=== PATIENT | male | born 1935 | race Caucasian/White ===

== ENCOUNTER 2017-03-21 10:39 | Inpatient (IN) | payer MEDICARE, OTHER, MEDICAID ==
[2017-03-21] MEDS: Sodium Chloride 0.9% 1,000 ML IV ONE ×2 (11:00→13:29)
[2017-03-21] MEDS ORDERED: Sodium Chloride 0.9% 1,000 ML IV ONE (11:00)
[2017-03-21 12:04] LABS: CHLORIDE,CL 105 mmol/L (101-111); SODIUM,NA 138 mmol/L (135-145)
--- NOTE | 2017-03-21 12:17 | EDM.PDOC ---
ED HPI GENERAL MEDICAL PROBLEM - General Chief Complaint: Possible Sepsis Stated Complaint: [facility] PATIENT Time Seen by Provider: 03/21/17 11:05 Source of Information: Reports: Patient History Limitations: Reports: No Limitations - History of Present Illness INITIAL COMMENTS - FREE TEXT/NARRATIVE: This 81 yo male patient reports [facility] due to not answering normally, a fever (yesterday of 101). The patient has a history of a cellulitis in his right leg and has a rash again on his right leg. The patient normally answers in complete sentences, but today only answers in 1-2 word phrases. Onset: Gradual Onset Date: 03/20/17 Duration: Constant, Getting Worse Location: Reports: Generalized Quality: Reports: Dull Severity: Severe Improves with: Reports: None Worsens with: Reports: None Associated Symptoms: Reports: No Other Symptoms - Related Data Allergies Allergy/AdvReac Type Severity Reaction Status Date / Time amoxicillin [Amoxicillin] Allergy Unknown Cannot Verified 11/13/16 16:47 Remember Penicillins Allergy Unknown Cannot Verified 11/13/16 16:47 Remember Home Meds: Home Meds Acetaminophen [Tylenol] 650 mg PO ASDIRECTED PRN 09/23/14 [History] Ascorbic Acid [Vitamin C] 1 tab PO DAILY 09/23/14 [History] Calcium Carbonate [Tums] 1 tab PO ASDIRECTED PRN 09/23/14 [History] Cranberry 800 mg PO BID 09/23/14 [History] Dexamethasone/Tobramycin [Tobradex Ophth Susp] 1 drop EYEBOTH ASDIRECTED [History] Docusate Sodium [Colace] 100 mg PO DAILY PRN 09/23/14 [History] Glycopyrrolate 1 mg PO BID 09/23/14 [History] Hypromellose [Systane Gel] 1 dose EYEBOTH ASDIRECTED 09/23/14 [History] LORazepam 0.5 mg PO TID 09/23/14 [History] Mirtazapine [Remeron] 15 mg PO DAILY 09/23/14 [History] Multivitamin [Multi-Vitamin Daily] 1 tab PO DAILY 09/23/14 [History] Polyethylene Glycol 3350 [MiraLAX] 17 gm PO DAILY 09/23/14 [History] Propranolol [Inderal LA] 40 mg PO TID 09/23/14 [History] Tamsulosin HCl 0.4 mg PO DAILY 09/23/14 [History] Warfarin Sodium [Jantoven] 2.5 mg PO ASDIRECTED 09/23/14 [History] Warfarin [Coumadin] 5 mg PO ASDIRECTED 09/23/14 [History] guaiFENesin [Robitussin] 10 ml PO ASDIRECTED PRN 09/23/14 [History] Acetaminophen [Tylenol] 650 mg PO TID 11/13/16 [History] Lidocaine HCl [Aspercreme] 76.5 gm TP BID 11/13/16 [History] Psyllium Husk [Fiber] 0.52 gm PO BID 11/13/16 [History] Trolamine Salicylate/Aloe Vera [Aspercreme 10%] 1 mg TOP ASDIRECTED 11/13/16 [ History] Vit C/Ascorbate Ca/Ascorb Sod [Vitamin C] 500 mg PO ASDIRECTED 11/13/16 [History ] Past Medical History Cardiovascular History: Reports: Hypertension, Other (See Below) Other Cardiovascular History: dependent edema Gastrointestinal History: Reports: Chronic Constipation, Diverticulosis Genitourinary History: Reports: BPH Musculoskeletal History: Reports: Other (See Below) Other Musculoskeletal History: debility Neurological History: Reports: Other (See Below) Other Neuro History: essential tremor Psychiatric History: Reports: Depression Hematologic History: Reports: Anticoagulation Therapy Social & Family History - Family History Family Medical History: Noncontributory Respiratory: Reports: COPD - Tobacco Use Smoking Status *Q: Never Smoker Second Hand Smoke Exposure: No - Caffeine Use Caffeine Use: Reports: Coffee - Alcohol Use Days Per Week of Alcohol Use: 0 - Recreational Drug Use Recreational Drug Use: No - Living Situation & Occupation Living situation: Reports: Extended Care Facility Occupation: Retired ED ROS GENERAL - Review of Systems Review Of Systems: ROS reveals no pertinent complaints other than HPI. ED EXAM, GENERAL - Physical Exam Exam: See Below Exam Limited By: No Limitations General Appearance: Lethargic, Severe Distress, Thin Eye Exam: Bilateral Eye: EOMI, Normal Inspection, PERRL Ears: Normal External Exam, Normal Canal, Hearing Grossly Normal, Normal TMs Nose: Normal Inspection, Normal Mucosa, No Blood Throat/Mouth: Normal Inspection Head: Atraumatic, Normocephalic Neck: Normal Inspection, Supple, Non-Tender, Full Range of Motion Respiratory/Chest: Decreased Breath Sounds Cardiovascular: Irregularly Irregular GI/Abdominal: Normal Bowel Sounds, Soft, Non-Tender, No Organomegaly, No Distention, No Abnormal Bruit, No Mass (Male) Exam: Deferred Rectal (Males) Exam: Deferred Extremities: Pedal Edema (right leg) Neurological: Alert Psychiatric: Depressed Mood, Flat Affect Skin Exam: Rash (right leg) Lymphatic: No Adenopathy Course - Vital Signs Last Recorded V/S: Last Vital Signs Temp 36.4 C 03/21/17 10:45 Pulse 132 H 03/21/17 10:45 Resp 24 H 03/21/17 10:45 BP 81/60 L 03/21/17 10:45 Pulse Ox 94 L 03/21/17 10:45 - Orders/Labs/Meds Orders: Active Orders 24 hr Category Date Time Status EKG Documentation Completion [RC] URGENT Care 03/21/17 11:10 Active Chest 1V Frontal [CR] Urgent Exams 03/21/17 11:11 Taken Head wo Cont [CT] Urgent Exams 03/21/17 12:38 Ordered CULTURE BLOOD [BC] Stat Lab 03/21/17 11:25 Received CULTURE BLOOD [BC] Stat Lab 03/21/17 11:34 Received Blood Culture x2 Reflex Set [OM.PC] Stat Oth 03/21/17 11:10 Ordered Labs: Laboratory Tests 03/21/17 03/21/17 03/21/17 Range/Units 11:25 11:25 11:25 WBC 15.8 H (5.0-10.0) 10^3/uL RBC 4.90 (4.6-6.2) 10^6/uL Hgb 14.9 (14.0-18.0) g/dL Hct 46.5 (40.0-54.0) % MCV 94.9 (80-100) fL MCH 30.4 (27.0-34.0) pg MCHC 32.0 L (33.0-35.0) g/dL Plt Count 154 (150-450) 10^3/uL Neut % (Auto) 86.5 H (42.2-75.2) % Lymph % (Auto) 7.0 L (20.5-50.1) % Hale % (Auto) 6.3 (2-8) % Eos % (Auto) 0.1 L (1.0-3.0) % Baso % (Auto) 0.1 (0.0-1.0) % Add Manual Diff Yes Neutrophils % (Manual) 80 % Band Neutrophils % 4 % Lymphocytes % (Manual) 10 % Monocytes % (Manual) 6 % PT (9.0-12.0) SEC INR (0.9-1.2) Sodium 138 (135-145) mmol/L Potassium 4.0 (3.6-5.0) mmol/L Chloride 105 (101-111) mmol/L Carbon Dioxide 26.0 (21.0-31.0) mmol/L Anion Gap 11.0 BUN 24 H (7-18) mg/dL Creatinine 1.0 (0.6-1.3) mg/dL Est Cr Clr Drug Dosing 74.81 mL/min Estimated GFR (MDRD) > 60 BUN/Creatinine Ratio 24.00 Glucose 115 H (74-105) mg/dL Lactic Acid 1.5 (0.5-2.2) mmol/L Calcium 8.6 (8.4-10.2) mg/dl Total Bilirubin 1.2 H (0.2-1.0) mg/dL AST 27 (10-42) IU/L ALT 15 (10-60) IU/L Alkaline Phosphatase 59 (42-121) IU/L Troponin I 0.03 H* (0.00-0.02) ng/ml C-Reactive Protein (0.0-1.3) mg/dL Total Protein 6.1 L (6.7-8.2) g/dl Albumin 2.8 L (3.2-5.5) g/dl Globulin 3.3 Albumin/Globulin Ratio 0.85 Urine Color (YELLOW) Urine Appearance (CLEAR) Urine pH (5.0-9.0) Ur Specific Aneta (1.005-1.030) Urine Protein (NEGATIVE) Urine Glucose (UA) (NEGATIVE) Urine Ketones (NEGATIVE) Urine Occult Blood (NEGATIVE) Urine Nitrite (NEGATIVE) Urine Bilirubin (NEGATIVE) Urine Urobilinogen (0.2-1.0) mg/dL Ur Leukocyte Esterase (NEGATIVE) Urine RBC /HPF Urine WBC (0-5/HPF) /HPF Ur Epithelial Cells /HPF Urine Bacteria (0-FEW/HPF) /HPF 03/21/17 03/21/17 03/21/17 Range/Units 11:25 11:25 12:00 WBC (5.0-10.0) 10^3/uL RBC (4.6-6.2) 10^6/uL Hgb (14.0-18.0) g/dL Hct (40.0-54.0) % MCV (80-100) fL MCH (27.0-34.0) pg MCHC (33.0-35.0) g/dL Plt Count (150-450) 10^3/uL Neut % (Auto) (42.2-75.2) % Lymph % (Auto) (20.5-50.1) % Hale % (Auto) (2-8) % Eos % (Auto) (1.0-3.0) % Baso % (Auto) (0.0-1.0) % Add Manual Diff Neutrophils % (Manual) % Band Neutrophils % % Lymphocytes % (Manual) % Monocytes % (Manual) % PT 19.2 H (9.0-12.0) SEC INR 1.9 H (0.9-1.2) Sodium (135-145) mmol/L Potassium (3.6-5.0) mmol/L Chloride (101-111) mmol/L Carbon Dioxide (21.0-31.0) mmol/L Anion Gap BUN (7-18) mg/dL Creatinine (0.6-1.3) mg/dL Est Cr Clr Drug Dosing mL/min Estimated GFR (MDRD) BUN/Creatinine Ratio Glucose (74-105) mg/dL Lactic Acid (0.5-2.2) mmol/L Calcium (8.4-10.2) mg/dl Total Bilirubin (0.2-1.0) mg/dL AST (10-42) IU/L ALT (10-60) IU/L Alkaline Phosphatase (42-121) IU/L Troponin I (0.00-0.02) ng/ml C-Reactive Protein > 20.0 H (0.0-1.3) mg/dL Total Protein (6.7-8.2) g/dl Albumin (3.2-5.5) g/dl Globulin Albumin/Globulin Ratio Urine Color Yellow (YELLOW) Urine Appearance Turbid (CLEAR) Urine pH 5.5 (5.0-9.0) Ur Specific Aneta 1.015 (1.005-1.030) Urine Protein 30 H (NEGATIVE) Urine Glucose (UA) Negative (NEGATIVE) Urine Ketones Trace H (NEGATIVE) Urine Occult Blood Moderate H (NEGATIVE) Urine Nitrite Negative (NEGATIVE) Urine Bilirubin Negative (NEGATIVE) Urine Urobilinogen 0.2 (0.2-1.0) mg/dL Ur Leukocyte Esterase Small H (NEGATIVE) Urine RBC 10-20 H /HPF Urine WBC 50-75 H (0-5/HPF) /HPF Ur Epithelial Cells Rare /HPF Urine Bacteria Many H (0-FEW/HPF) /HPF Departure - Departure Time of Disposition: 12:40 Disposition: Admitted As Inpatient 66 Condition: poor Clinical Impression: Cellulitis of right leg Sepsis Qualifiers: Sepsis type: sepsis due to unspecified organism Qualified Code(s): A41.9 - Sepsis, unspecified organism - Discharge Information Forms: ED Department Discharge Care Plan Goals: Discussed the patient's history, examination, lab, x-ray and treatments with Dr. Smith. Dr. Smith accepted the patient for continued evaluation and management as an inpatient at [facility]. - My Orders Last 24 Hours: My Active Orders 03/21/17 11:10 EKG Documentation Completion [RC] URGENT Blood Culture x2 Reflex Set [OM.PC] Stat 03/21/17 11:11 Chest 1V Frontal [CR] Urgent 03/21/17 11:25 CULTURE BLOOD [BC] Stat 03/21/17 11:34 CULTURE BLOOD [BC] Stat 03/21/17 12:38 Head wo Cont [CT] Urgent - Assessment/Plan Last 24 Hours: My Active Orders 03/21/17 11:10 EKG Documentation Completion [RC] URGENT Blood Culture x2 Reflex Set [OM.PC] Stat 03/21/17 11:11 Chest 1V Frontal [CR] Urgent 03/21/17 11:25 CULTURE BLOOD [BC] Stat 03/21/17 11:34 CULTURE BLOOD [BC] Stat 03/21/17 12:38 Head wo Cont [CT] Urgent
[2017-03-21] MEDS ORDERED: Acetaminophen 325 MG Tab PO PRN (14:29)
[2017-03-21] MEDS ORDERED: Polyvinyl Alcohol 1.4% Ophth Soln 15 ML Bottle EYEBOTH SCH (14:30)
[2017-03-21] MEDS ORDERED: Clindamycin Phosphate 600 MG in Sodium Chloride 0.9% 100 ML IV SCH ×2 (14:36→22:00)
--- NOTE | 2017-03-21 14:43 | PCM.HP ---
H&P History of Present Illness - General Date of Service: 03/21/17 Admit Problem/Dx: Admission Diagnosis/Problem Admission Diagnosis/Problem Cellulitis Source of Information: Patient (minimally able to communicate), Old Records (ER notes and prior admission notes), Provider (ER provider) History Limitations: Reports: Altered Mental Status - History of Present Illness Initial Comments - Free Text/Narative: The patent is a 81 y/o from prison with PMH h/o severe OA of the neck, essential tremors, chronic constipation, HTN, h/o DVT on coumadin , functional paraplegia with contractures, depression and chronic leg edema. On 20 March the patient was noted to develop lethargy and fever. On 21 March the patient was noted to have right lower extremity redness and was transferred to the emergency room from the prison. She is less responsive than his baseline and not talking much. Limited information is obtainable from the patient no cough, no diarrhea, no new c/o pain - but not himself. The patient was evaluated in the emergency room, noted to have leukocytosis and right lower extremity redness. This right lower extremity redness is similar to admission with similar presentation in October 2016. - Related Data Allergies/Adverse Reactions: Allergies Allergy/AdvReac Type Severity Reaction Status Date / Time amoxicillin [Amoxicillin] Allergy Unknown Cannot Verified 11/13/16 16:47 Remember Penicillins Allergy Unknown Cannot Verified 11/13/16 16:47 Remember Home Medications: Home Meds Acetaminophen [Tylenol] 650 mg PO ASDIRECTED PRN 09/23/14 [History] Ascorbic Acid [Vitamin C] 1 tab PO DAILY 09/23/14 [History] Calcium Carbonate [Tums] 1 tab PO ASDIRECTED PRN 09/23/14 [History] Cranberry 800 mg PO BID 09/23/14 [History] Dexamethasone/Tobramycin [Tobradex Ophth Susp] 1 drop EYEBOTH ASDIRECTED [History] Docusate Sodium [Colace] 100 mg PO DAILY PRN 09/23/14 [History] Glycopyrrolate 1 mg PO BID 09/23/14 [History] Hypromellose [Systane Gel] 1 dose EYEBOTH ASDIRECTED 09/23/14 [History] LORazepam 0.5 mg PO TID 09/23/14 [History] Mirtazapine [Remeron] 15 mg PO DAILY 09/23/14 [History] Multivitamin [Multi-Vitamin Daily] 1 tab PO DAILY 09/23/14 [History] Polyethylene Glycol 3350 [MiraLAX] 17 gm PO DAILY 09/23/14 [History] Propranolol [Inderal LA] 40 mg PO TID 09/23/14 [History] Tamsulosin HCl 0.4 mg PO DAILY 09/23/14 [History] Warfarin Sodium [Jantoven] 2.5 mg PO ASDIRECTED 09/23/14 [History] Warfarin [Coumadin] 5 mg PO ASDIRECTED 09/23/14 [History] guaiFENesin [Robitussin] 10 ml PO ASDIRECTED PRN 09/23/14 [History] Acetaminophen [Tylenol] 650 mg PO TID 11/13/16 [History] Lidocaine HCl [Aspercreme] 76.5 gm TP BID 11/13/16 [History] Psyllium Husk [Fiber] 0.52 gm PO BID 11/13/16 [History] Trolamine Salicylate/Aloe Vera [Aspercreme 10%] 1 mg TOP ASDIRECTED 11/13/16 [ History] Vit C/Ascorbate Ca/Ascorb Sod [Vitamin C] 500 mg PO ASDIRECTED 11/13/16 [History ] Past Medical History HEENT History: Reports: Other (See Below) Other HEENT History: conjunctivitis Cardiovascular History: Reports: Hypertension, Other (See Below) Other Cardiovascular History: dependent edema Gastrointestinal History: Reports: Chronic Constipation, Diverticulosis Genitourinary History: Reports: BPH Musculoskeletal History: Reports: Other (See Below) Other Musculoskeletal History: debility Neurological History: Reports: TIA, Other (See Below) Other Neuro History: essential tremor Psychiatric History: Reports: Depression Hematologic History: Reports: Anticoagulation Therapy Dermatologic History: Reports: Cellulitis Social & Family History - Family History Family Medical History: Noncontributory Respiratory: Reports: COPD - Tobacco Use Smoking Status *Q: Never Smoker Second Hand Smoke Exposure: No - Caffeine Use Caffeine Use: Reports: Coffee - Alcohol Use Days Per Week of Alcohol Use: 1 Number of Drinks Per Day: 1 Total Drinks Per Week: 1 - Recreational Drug Use Recreational Drug Use: No - Living Situation & Occupation Living situation: Reports: Extended Care Facility Occupation: Retired H&P Review of Systems - Review of Systems: Review Of Systems: See Below General: Reports: Fever, Malaise, Weakness Pulmonary: Denies: Shortness of Breath, Wheezing Cardiovascular: Reports: Edema. Denies: Chest Pain Gastrointestinal: Denies: Abdominal Pain, Black Stool, Diarrhea Genitourinary: Denies: Dysuria Psychiatric: Reports: Depression Neurological: Reports: Confusion Exam - Exam Exam: See Below - Vital Signs Vital Signs: Last Vital Signs Temp 36.9 C 03/21/17 14:03 Pulse 58 L 03/21/17 14:03 Resp 18 03/21/17 14:03 BP 83/34 L 03/21/17 14:03 Pulse Ox 98 03/21/17 14:03 Weight: 95.719 kg - Exam General: Lethargic (but arousable briefly) HEENT: No: EOMI Neck: No: Supple (contracture) Lungs: Clear to Auscultation, Normal Respiratory Effort. No: Wheezing Cardiovascular: Regular Rate Abdomen: Normal Bowel Sounds, Soft Extremities: Edema (right lower extremity), Other (bilateral upper extremities contracted) Skin: Warm, Other (right lower extremity diffuse redness from ankle to thigh) Neurological: Other (contracted extremities and neck, mild tremor) Neuro Extensive - Mental Status: No: Oriented x3 - Patient Data Result Diagrams: 03/21/17 11:25 03/21/17 11:25 *Q Meaningful Use (ADM) - VTE *Q VTE Criteria *Q: - Stroke *Q Stroke Criteria *Q: - AMI *Q AMI Criteria *Q: - Problem List (1) Cellulitis of right leg SNOMED Code(s): 510414089 ICD Code: L03.115 - CELLULITIS OF RIGHT LOWER LIMB Status: Acute Current Visit: Yes Problem List Initiated/Reviewed/Updated: Yes Orders Last 24hrs: Active Orders 24 hr Category Date Time Status Antiembolic Devices [RC] PER UNIT ROUTINE Care 03/21/17 14:36 Ordered Oxygen Therapy [RC] PRN Care 03/21/17 14:29 Ordered Peripheral IV Care [RC] . DIRECTED Care 03/21/17 14:36 Ordered Up With Assistance [RC] ASDIRECTED Care 03/21/17 14:29 Ordered VTE/DVT Education [RC] PER UNIT ROUTINE Care 03/21/17 14:29 Ordered Vital Signs [RC] Q4H Care 03/21/17 14:29 Ordered OT Evaluation and Treatment [CONS] Routine Cons 03/21/17 14:29 Ordered PT Evaluation and Treatment [CONS] Routine Cons 03/21/17 14:29 Ordered Regular Diet [DIET] Diet 03/21/17 Dinner Ordered BASIC METABOLIC PANEL,BMP [CHEM] AM Lab 03/22/17 05:15 Ordered CBC WITH AUTO DIFF [HEME] AM Lab 03/22/17 05:15 Ordered CULTURE URINE [RM] Routine Lab 03/21/17 14:17 Uncollected INR,PT,PROTHROMBIN TIME [COAG] AM Lab 03/23/17 05:11 Ordered INR,PT,PROTHROMBIN TIME [COAG] AM Lab 03/24/17 05:11 Ordered INR,PT,PROTHROMBIN TIME [COAG] AM Lab 03/25/17 05:11 Ordered INR,PT,PROTHROMBIN TIME [COAG] AM Lab 03/26/17 05:11 Ordered INR,PT,PROTHROMBIN TIME [COAG] AM Lab 03/27/17 05:11 Ordered INR,PT,PROTHROMBIN TIME [COAG] AM Lab 03/28/17 05:11 Ordered Acetaminophen [Tylenol] Med 03/21/17 14:29 Ordered 650 mg PO Q4H PRN Acetaminophen [Tylenol] Med 03/21/17 21:00 Ordered 650 mg PO TID Ascorbic Acid [Vitamin C] Med 03/22/17 09:00 Ordered 1 tab PO DAILY Clindamycin Phosphate [Cleocin] 600 mg Med 03/21/17 14:30 Ordered Sodium Chloride 0.9% [Normal Saline] 100 ml IV Q8H Clindamycin Phosphate [Cleocin] 600 mg Med 03/21/17 14:36 Active Sodium Chloride 0.9% [Normal Saline] 100 ml IV Q8HR Dexamethasone/Tobramycin [Tobradex Ophth Susp] Med 03/21/17 21:00 Ordered 1 drop EYEBOTH BID Hypromellose [Systane Gel] Med 03/21/17 14:30 Ordered 1 dose EYEBOTH ASDIRECTED Mirtazapine [Remeron] Med 03/22/17 09:00 Ordered 15 mg PO DAILY Multivitamin [Multi-Vitamin Daily] Med 03/22/17 09:00 Ordered 1 tab PO DAILY Polyethylene Glycol 3350 [MiraLAX] Med 03/22/17 09:00 Ordered 17 gm PO DAILY Propranolol [Inderal LA] Med 03/21/17 21:00 Ordered 40 mg PO TID Sodium Chloride 0.9% [Saline Flush] Med 03/21/17 14:29 Ordered 10 ml FLUSH ASDIRECTED PRN Tamsulosin [Flomax] Med 03/22/17 09:00 Ordered 0.4 mg PO DAILY Warfarin Pharmacy to Dose [Pharmacy to Dose - Warfarin] Med 03/21/17 14:30 Ordered 1 dose .XX ASDIRECTED Antiembolic Hose [OM.PC] Per Unit Routine Oth 03/21/17 14:35 Ordered Peripheral IV Insertion Adult [OM.PC] Routine Oth 03/21/17 14:29 Ordered Resuscitation Status Routine Resus Stat 03/21/17 14:29 Ordered Medication Orders Acetaminophen (Tylenol) 650 mg PO TID [facility] Acetaminophen (Tylenol) 650 mg PO Q4H PRN PRN Reason: Pain (Mild 1-3)/fever Ascorbic Acid (Vitamin C) mg PO DAILY [facility] Clindamycin Phosphate 600 mg/ (Sodium Chloride) 104 mls @ 200 mls/hr IV Q8HR [facility] Clindamycin Phosphate 600 mg/ (Sodium Chloride) 104 mls @ 200 mls/hr IV Q8HR [facility] Mirtazapine (Remeron) 15 mg PO DAILY [facility] Non-Formulary Medication (Hypromellose [Systane Gel]) 1 dose EYEBOTH ASDIRECTED [facility] Non-Formulary Medication (Multivitamin [Multi-Vitamin Daily]) 1 tab PO DAILY [facility] Non-Formulary Medication (Propranolol [Inderal La]) 40 mg PO TID [facility] Polyethylene Glycol (Miralax) 17 gm PO DAILY [facility] Sodium Chloride (Saline Flush) 10 ml FLUSH ASDIRECTED PRN PRN Reason: Keep Vein Open Tamsulosin HCl (Flomax) 0.4 mg PO DAILY [facility] Tobramycin/Dexamethasone (Tobradex Ophth Susp) ml EYEBOTH BID [facility] Warfarin Sodium (Pharmacy To Dose - Warfarin) 1 dose .XX ASDIRECTED [facility] Assessment/Plan Comment:: The patent is a 81 y/o from prison with PMH h/o severe OA of the neck, essential tremors, chronic constipation, HTN, h/o DVT on coumadin , functional paraplegia with contractures, depression and chronic leg edema. On 20 March the patient was noted to develop lethargy and fever. On 21 March the patient was noted to have right lower extremity redness and was transferred to the emergency room from the prison. She is less responsive than his baseline and not talking much. Limited information is obtainable from the patient no cough, no diarrhea, no new c/o pain - but not himself. The patient was evaluated in the emergency room, noted to have leukocytosis and right lower extremity redness. This right lower extremity redness is similar to admission with similar presentation in October 2016. Acute encephalopathy secondary to Cellulitis of the right leg and possible urinary tract infection Will treat causes Follow vital signs -Start IV fluids and continue until oral intake improves Cellulitis of the right lower extremity -erythema of right leg from ankle to posterior thigh -This is similar to prior admission - Obtain blood cultures - Treat empirically with clinda 600 mg Q6 IV -started 03/21/17 Functional parapalegia -wheelchair bound, requires assist with ADL including eating -Will have PT /OT working with pt -pt is [facility] dependent - has a history of dysphasia but opted not to follow dysphasia diet Possible UTI vs colonization -nitrate neg but with small leukocytes -We'll obtain urine for culture h/o DVT on coumadin -We'll follow INR dose coumadin for target INR between 2 and 3 Essential tremor -cont propranolol History of depression For now we'll hold the scheduled lorazepam due to the patient's lethargy Continue remeron Full code per advanced directive and per prior admission
[2017-03-21] MEDS: Clindamycin Phosphate 600 MG in Sodium Chloride 0.9% 100 ML IV SCH ×2 (14:55→22:13)
[2017-03-21] MEDS ORDERED: PROPRANOLOL 40 MG PO SCH (21:00)
[2017-03-21] MEDS: Dexamethasone/Tobramycin 0.1-0.3% Ophth Susp 2.5 ML Bottle EYEBOTH SCH (21:09)
[2017-03-21] MEDS: Acetaminophen 325 MG Tab PO SCH (21:10)
[2017-03-21] MEDS: Propranolol 20 MG Tab PO SCH (21:11)
[2017-03-22] MEDS: Sodium Chloride 0.9% 1,000 ML IV SCH ×2 (01:02→12:05)
[2017-03-22] MEDS: Clindamycin Phosphate 600 MG in Sodium Chloride 0.9% 100 ML IV SCH ×3 (06:09→22:14)
[2017-03-22 06:56] LABS: CHLORIDE,CL 107 mmol/L (101-111); SODIUM,NA 138 mmol/L (135-145)
[2017-03-22] MEDS ORDERED: Ascorbic Acid 500 MG Tab PO SCH (09:00)
[2017-03-22] MEDS: Propranolol 20 MG Tab PO SCH ×3 (09:34→20:51)
[2017-03-22] MEDS: Multivitamins,Therapeutic Tab PO SCH (09:34)
[2017-03-22] MEDS: Acetaminophen 325 MG Tab PO SCH ×3 (09:35→20:52)
[2017-03-22] MEDS: Mirtazapine 15 MG Tab PO SCH (09:35)
[2017-03-22] MEDS: Tamsulosin 0.4 MG Cap.ER PO SCH (09:36)
[2017-03-22] MEDS: Polyethylene Glycol 3350 Powder 17 GM Packet PO SCH (09:36)
[2017-03-22] MEDS: Dexamethasone/Tobramycin 0.1-0.3% Ophth Susp 2.5 ML Bottle EYEBOTH SCH ×2 (09:37→20:54)
--- NOTE | 2017-03-22 10:54 | PCM.PN ---
- General Info Date of Service: 03/22/17 Admission Dx/Problem (Free Text): Admission Diagnosis/Problem Admission Diagnosis/Problem Cellulitis Subjective Update: the patient remained hemodynamically stable overnight. She is more awake and alert. He is eating good good, drinking well. Continue to have a right lower extremity redness. No significant fever. Functional Status: Reports: pain controlled, tolerating diet - Review of Systems General: Denies: Fever Pulmonary: Denies: shortness of breath Cardiovascular: Denies: Chest Pain Gastrointestinal: Denies: Abdominal pain - Patient Data Vitals - most recent: Last Vital Signs Temp 37.0 C 03/22/17 07:00 Pulse 62 03/22/17 07:00 Resp 17 03/22/17 07:00 BP 109/65 03/22/17 07:00 Pulse Ox 96 03/22/17 07:00 Weight - most recent: 95.719 kg I&O - last 24 hours: Intake & Output 03/21/17 03/22/17 03/22/17 22:59 06:59 14:59 Intake Total 500 758 Balance 500 758 Lab Results last 24 hrs: Laboratory Results - last 24 hr 03/22/17 03/22/17 Range/Units 06:19 06:19 WBC 12.6 H (5.0-10.0) 10^3/uL RBC 4.49 L (4.6-6.2) 10^6/uL Hgb 13.6 L (14.0-18.0) g/dL Hct 43.0 (40.0-54.0) % MCV 95.8 (80-100) fL MCH 30.3 (27.0-34.0) pg MCHC 31.6 L (33.0-35.0) g/dL Plt Count 139 L (150-450) 10^3/uL Neut % (Auto) 83.5 H (42.2-75.2) % Lymph % (Auto) 7.6 L (20.5-50.1) % [place] % (Auto) 8.5 H (2-8) % Eos % (Auto) 0.2 L (1.0-3.0) % Baso % (Auto) 0.2 (0.0-1.0) % Sodium 138 (135-145) mmol/L Potassium 4.0 (3.6-5.0) mmol/L Chloride 107 (101-111) mmol/L Carbon Dioxide 25.0 (21.0-31.0) mmol/L Anion Gap 10.0 BUN 20 H (7-18) mg/dL Creatinine 0.7 (0.6-1.3) mg/dL Est Cr Clr Drug Dosing 104.30 mL/min Estimated GFR (MDRD) > 60 Glucose 95 (74-105) mg/dL Calcium 8.3 L (8.4-10.2) mg/dl Med Orders - Current: Current Medications Acetaminophen (Tylenol) 650 mg PO TID [facility] Last Admin: 03/22/17 09:35 Dose: 650 mg Acetaminophen (Tylenol) 650 mg PO Q4H PRN PRN Reason: Pain (Mild 1-3)/fever Artificial Tears (Liquitears 1.4% Ophth Soln) 0 ml EYEBOTH ASDIRECTED [facility] Sodium Chloride (Normal Saline) 1,000 mls @ 50 mls/hr IV ASDIRECTED [facility] Last Admin: 03/22/17 01:02 Dose: 100 mls/hr Clindamycin Phosphate 600 mg/ (Sodium Chloride) 104 mls @ 200 mls/hr IV Q8HR [facility] Mirtazapine (Remeron) 15 mg PO DAILY [facility] Last Admin: 03/22/17 09:35 Dose: 15 mg Multivitamins (Thera) 1 each PO DAILY [facility] Last Admin: 03/22/17 09:34 Dose: 1 each Polyethylene Glycol (Miralax) 17 gm PO DAILY [facility] Last Admin: 03/22/17 09:36 Dose: 17 gm Propranolol HCl (Inderal) 40 mg PO TID [facility] Last Admin: 03/22/17 09:34 Dose: 40 mg Sodium Chloride (Saline Flush) 10 ml FLUSH ASDIRECTED PRN PRN Reason: Keep Vein Open Tamsulosin HCl (Flomax) 0.4 mg PO DAILY [facility] Last Admin: 03/22/17 09:36 Dose: 0.4 mg Tobramycin/Dexamethasone (Tobradex Ophth Susp) 0 ml EYEBOTH BID [facility] Last Admin: 03/22/17 09:37 Dose: 1 drop Warfarin Sodium (Pharmacy To Dose - Warfarin) 1 dose .XX ASDIRECTED [facility] Discontinued Medications Ascorbic Acid (Vitamin C) mg PO DAILY [facility] Sodium Chloride (Normal Saline) 1,000 mls @ 999 mls/hr IV .BOLUS ONE Stop: 03/21/17 14:17 Last Admin: 03/21/17 13:29 Dose: Not Given Sodium Chloride (Normal Saline) 1,000 mls @ 999 mls/hr IV .BOLUS ONE Stop: 03/21/17 12:00 Last Admin: 03/21/17 11:00 Dose: 999 mls/hr Clindamycin Phosphate 600 mg/ (Sodium Chloride) 104 mls @ 200 mls/hr IV Q8HR [facility] Last Admin: 03/22/17 06:09 Dose: 200 mls/hr Clindamycin Phosphate 600 mg/ (Sodium Chloride) 104 mls @ 200 mls/hr IV Q8HR [facility] Clindamycin Phosphate 600 mg/ (Sodium Chloride) 104 mls @ 200 mls/hr IV Q8HR [facility] Last Admin: 03/21/17 14:51 Dose: Not Given Non-Formulary Medication (Propranolol [Inderal La]) 40 mg PO TID [facility] - Exam General: alert, oriented Neck: other (Leaning significantly towards the left) Lungs: Clear to auscultation, Normal respiratory effort Cardiovascular: Regular Rate Abdomen: bowel sounds present, soft, no tenderness Extremities: edema (right leg) Skin: warm, other (erythema of the right leg) Psy/Mental Status: alert, normal affect - Problem List & Annotations (1) Cellulitis of right leg SNOMED Code(s): 084382695 Code(s): L03.115 - CELLULITIS OF RIGHT LOWER LIMB Status: Acute Current Visit: Yes - Problem List Review Problem List Initiated/Reviewed/Updated: Yes - My Orders Last 24 Hours: My Active Orders 03/21/17 15:00 Sodium Chloride 0.9% [Normal Saline] 1,000 ml IV ASDIRECTED 03/21/17 21:00 Propranolol [Inderal] 40 mg PO TID 03/22/17 14:00 Clindamycin Phosphate [Cleocin] 600 mg Sodium Chloride 0.9% [Normal Saline] 100 ml IV Q8HR 03/23/17 05:15 BASIC METABOLIC PANEL,BMP [CHEM] AM CBC WITH AUTO DIFF [HEME] AM - Plan Plan:: The patent is a 81 [facility] from [facility] with PMH h/o severe OA of the neck, essential tremors, chronic constipation, HTN, h/o DVT on coumadin , functional paraplegia with contractures, depression and chronic leg edema. On 20 March the patient was noted to develop lethargy and fever. On 21 March the patient was noted to have right lower extremity redness and was transferred [facility] the emergency room [facility] the prison. She is less responsive than his baseline and not talking much. Limited information is obtainable from the patient no cough, no diarrhea, no new c/o pain - but not himself. The patient was evaluated in the emergency room, noted to have leukocytosis and right lower extremity redness. This right lower extremity redness is similar to admission with similar presentation in October 2016. Acute encephalopathy secondary to Cellulitis of the right leg and possible urinary tract infection seems improved Will treat causes Follow vital signs not eating well, cut back on IV fluids Cellulitis of the right lower extremity -erythema of right leg from ankle to posterior thigh -This is similar to prior admission blood cultures: pending - Treat empirically with clinda 600 mg Q6 IV -started 03/21/17 Functional parapalegia -wheelchair bound, requires assist with ADL including eating -Will have PT /OT working with pt -pt is [facility] dependent - has a history of dysphasia but opted not to follow dysphasia diet Possible UTI vs colonization -nitrate neg but with small leukocytes urine culture :pending h/o DVT on coumadin -We'll follow INR dose coumadin for target INR between 2 and 3 Essential tremor -cont propranolol History of depression For now we'll hold the scheduled lorazepam due to the patient's lethargy Continue shahab Called Codi Vargas Clarified code status She felt that the patient wish has changed since making the advance directive - would like DNR status
[2017-03-22] MEDS ORDERED: Warfarin 5 MG Tab PO ONE (14:00)
[2017-03-22] MEDS ORDERED: Ibuprofen 400 MG Tab PO PRN (19:59)
[2017-03-22] MEDS: Pantoprazole 40 MG Tab.CR PO SCH (20:53)
[2017-03-22] MEDS: Sodium Chloride 0.9% 10 ML Syringe FLUSH PRN (22:18)
[2017-03-23] MEDS: Clindamycin Phosphate 600 MG in Sodium Chloride 0.9% 100 ML IV SCH ×3 (05:47→21:59)
[2017-03-23 07:03] LABS: CHLORIDE,CL 110 mmol/L (101-111); SODIUM,NA 141 mmol/L (135-145)
[2017-03-23] MEDS: Tamsulosin 0.4 MG Cap.ER PO SCH (09:46)
[2017-03-23] MEDS: Propranolol 20 MG Tab PO SCH ×3 (09:46→20:25)
[2017-03-23] MEDS: Polyethylene Glycol 3350 Powder 17 GM Packet PO SCH (09:47)
[2017-03-23] MEDS: Multivitamins,Therapeutic Tab PO SCH (09:47)
[2017-03-23] MEDS: Mirtazapine 15 MG Tab PO SCH (09:47)
[2017-03-23] MEDS: Acetaminophen 325 MG Tab PO SCH ×3 (09:48→20:24)
[2017-03-23] MEDS: Sodium Chloride 0.9% 10 ML Syringe FLUSH PRN ×3 (09:49→22:50)
[2017-03-23] MEDS: Dexamethasone/Tobramycin 0.1-0.3% Ophth Susp 2.5 ML Bottle EYEBOTH SCH ×2 (09:50→20:22)
[2017-03-23] MEDS: Sodium Chloride 0.9% 1,000 ML IV SCH (10:58)
--- NOTE | 2017-03-23 12:17 | PCM.PN ---
- General Info Date of Service: 03/23/17 Admission Dx/Problem (Free Text): Admission Diagnosis/Problem Admission Diagnosis/Problem Cellulitis Subjective Update: the patient remained hemodynamically stable overnight. She is more awake and alert. Continue to have a right lower extremity redness but improved. No significant fever. no complaints of chest pain, shortness of breath. - Review of Systems General: Reports: Weakness. Denies: Fever Pulmonary: Denies: shortness of breath Cardiovascular: Denies: Chest Pain Gastrointestinal: Denies: Abdominal pain Neurological: Denies: Confusion - Patient Data Vitals - most recent: Last Vital Signs Temp 36.9 C 03/23/17 11:54 Pulse 63 03/23/17 11:54 Resp 20 03/23/17 11:54 BP 126/61 03/23/17 11:54 Pulse Ox 96 03/23/17 11:54 Weight - most recent: 95.719 kg I&O - last 24 hours: Intake & Output 03/22/17 03/23/17 03/23/17 22:59 06:59 14:59 Intake Total 1305 921 100 Balance 1305 921 100 Lab Results last 24 hrs: Laboratory Results - last 24 hr 03/22/17 03/23/17 03/23/17 Range/Units 12:23 06:12 06:12 WBC 9.5 (5.0-10.0) 10^3/uL RBC 4.54 L (4.6-6.2) 10^6/uL Hgb 13.9 L (14.0-18.0) g/dL Hct 43.4 (40.0-54.0) % MCV 95.6 (80-100) fL MCH 30.6 (27.0-34.0) pg MCHC 32.0 L (33.0-35.0) g/dL Plt Count 148 L (150-450) 10^3/uL Neut % (Auto) 81.8 H (42.2-75.2) % Lymph % (Auto) 8.9 L (20.5-50.1) % [place] % (Auto) 6.9 (2-8) % Eos % (Auto) 2.2 (1.0-3.0) % Baso % (Auto) 0.2 (0.0-1.0) % PT 15.9 H 18.0 H (9.0-12.0) SEC INR 1.6 H 1.8 H (0.9-1.2) Sodium (135-145) mmol/L Potassium (3.6-5.0) mmol/L Chloride (101-111) mmol/L Carbon Dioxide (21.0-31.0) mmol/L Anion Gap BUN (7-18) mg/dL Creatinine (0.6-1.3) mg/dL Est Cr Clr Drug Dosing mL/min Estimated GFR (MDRD) Glucose (74-105) mg/dL Calcium (8.4-10.2) mg/dl 03/23/17 Range/Units 06:12 WBC (5.0-10.0) 10^3/uL RBC (4.6-6.2) 10^6/uL Hgb (14.0-18.0) g/dL Hct (40.0-54.0) % MCV (80-100) fL MCH (27.0-34.0) pg MCHC (33.0-35.0) g/dL Plt Count (150-450) 10^3/uL Neut % (Auto) (42.2-75.2) % Lymph % (Auto) (20.5-50.1) % [place] % (Auto) (2-8) % Eos % (Auto) (1.0-3.0) % Baso % (Auto) (0.0-1.0) % PT (9.0-12.0) SEC INR (0.9-1.2) Sodium 141 (135-145) mmol/L Potassium 3.8 (3.6-5.0) mmol/L Chloride 110 (101-111) mmol/L Carbon Dioxide 26.0 (21.0-31.0) mmol/L Anion Gap 8.8 BUN 12 (7-18) mg/dL Creatinine 0.6 (0.6-1.3) mg/dL Est Cr Clr Drug Dosing 121.69 mL/min Estimated GFR (MDRD) > 60 Glucose 90 (74-105) mg/dL Calcium 8.4 (8.4-10.2) mg/dl Med Orders - Current: Current Medications Acetaminophen (Tylenol) 650 mg PO TID [facility] Last Admin: 03/23/17 09:48 Dose: 650 mg Acetaminophen (Tylenol) 650 mg PO Q4H PRN PRN Reason: Pain (Mild 1-3)/fever Artificial Tears (Liquitears 1.4% Ophth Soln) 0 ml EYEBOTH ASDIRECTED [facility] Sodium Chloride (Normal Saline) 1,000 mls @ 50 mls/hr IV ASDIRECTED [facility] Last Admin: 03/23/17 10:58 Dose: 50 mls/hr Clindamycin Phosphate 600 mg/ (Sodium Chloride) 104 mls @ 200 mls/hr IV Q8HR [facility] Last Admin: 03/23/17 05:47 Dose: 200 mls/hr Ibuprofen (Motrin) 400 mg PO Q6H PRN PRN Reason: moderate to severe pain Mirtazapine (Remeron) 15 mg PO DAILY [facility] Last Admin: 03/23/17 09:47 Dose: 15 mg Multivitamins (Thera) 1 each PO DAILY [facility] Last Admin: 03/23/17 09:47 Dose: 1 each Pantoprazole Sodium (Protonix) 40 mg PO BEDTIME [facility] Last Admin: 03/22/17 20:53 Dose: 40 mg Polyethylene Glycol (Miralax) 17 gm PO DAILY [facility] Last Admin: 03/23/17 09:47 Dose: 17 gm Propranolol HCl (Inderal) 40 mg PO TID [facility] Last Admin: 03/23/17 09:46 Dose: 40 mg Sodium Chloride (Saline Flush) 10 ml FLUSH ASDIRECT[facility] PRN PRN Reason: Keep Vein Open Last Admin: 03/23/17 09:49 Dose: 10 ml Tamsulosin HCl (Flomax) 0.4 mg PO DAILY [facility] Last Admin: 03/23/17 09:46 Dose: 0.4 mg Tobramycin/Dexamethasone (Tobradex Ophth Susp) 0 ml EYEBOTH BID [facility] Last Admin: 03/23/17 09:50 Dose: 1 drop Warfarin Sodium (Pharmacy To Dose - Warfarin) 1 dose .XX ASDIRECTED [facility] Warfarin Sodium (Coumadin) 5 mg PO ONETIME ONE Stop: 03/23/17 14:01 Discontinued Medications Ascorbic Acid (Vitamin C) mg PO DAILY [facility] Sodium Chloride (Normal Saline) 1,000 mls @ 999 mls/hr IV .BOLUS ONE Stop: 03/21/17 14:17 Last Admin: 03/21/17 13:29 Dose: Not Given Sodium Chloride (Normal Saline) 1,000 mls @ 999 mls/hr IV .BOLUS ONE Stop: 03/21/17 12:00 Last Admin: 03/21/17 11:00 Dose: 999 mls/hr Clindamycin Phosphate 600 mg/ (Sodium Chloride) 104 mls @ 200 mls/hr IV Q8HR [facility] Last Admin: 03/22/17 06:09 Dose: 200 mls/hr Clindamycin Phosphate 600 mg/ (Sodium Chloride) 104 mls @ 200 mls/hr IV Q8HR [facility] Clindamycin Phosphate 600 mg/ (Sodium Chloride) 104 mls @ 200 mls/hr IV Q8HR [facility] Last Admin: 03/21/17 14:51 Dose: Not Given Non-Formulary Medication (Propranolol [Inderal La]) 40 mg PO TID [facility] Warfarin Sodium (Coumadin) 5 mg PO ONETIME ONE Stop: 03/22/17 14:01 Last Admin: 03/22/17 14:39 Dose: 5 mg - Exam General: alert, oriented Neck: other (contracture) Lungs: Clear to auscultation, Normal respiratory effort Cardiovascular: Regular Rate, Regular Rhythm Abdomen: bowel sounds present, soft, no tenderness, no distension Extremities: edema (right lower extremity) Skin: warm, other (right lower extremity erythema is better) Neurological: no new focal deficit Psy/Mental Status: alert, normal affect, normal mood - Problem List & Annotations (1) Cellulitis of right leg SNOMED Code(s): 498241514 Code(s): L03.115 - CELLULITIS OF RIGHT LOWER LIMB Status: Acute Current Visit: Yes - Problem List Review Problem List Initiated/Reviewed/Updated: Yes - My Orders Last 24 Hours: My Active Orders 03/22/17 14:00 Clindamycin Phosphate [Cleocin] 600 mg Sodium Chloride 0.9% [Normal Saline] 100 ml IV Q8HR 03/22/17 19:59 Ibuprofen [Motrin] 400 mg PO Q6H PRN 03/22/17 21:00 Pantoprazole [ProTONIX] 40 mg PO BEDTIME 03/23/17 14:00 Warfarin [Coumadin] 5 mg PO ONETIME ONE 03/24/17 05:15 BASIC METABOLIC PANEL,BMP [CHEM] AM CBC WITH AUTO DIFF [HEME] AM - Plan Plan:: The patent is a 81 y/o from senior living with PMH h/o severe OA of the neck, essential tremors, chronic constipation, HTN, h/o DVT on coumadin , functional paraplegia with contractures, depression and chronic leg edema. On 20 March the patient was noted to develop lethargy and fever. On 21 March the patient was noted to have right lower extremity redness and was transferred to the emergency room from the senior living. She is less responsive than his baseline and not talking much. Limited information is obtainable from the patient no cough, no diarrhea, no new c/o pain - but not himself. The patient was evaluated in the emergency room, noted to have leukocytosis and right lower extremity redness. This right lower extremity redness is similar to admission with similar presentation in October 2016. Acute encephalopathy secondary to Cellulitis of the right leg and possible urinary tract infection seems improved Will treat cellulitis Follow vital signs eating well, stop IV fluids Cellulitis of the right lower extremity -erythema of right leg from ankle to posterior thigh -This is similar to prior admission blood cultures: pending - Treat empirically with clinda 600 mg Q6 IV -started 03/21/17 -improving erythema and leukocytosis is also better Functional parapalegia -wheelchair bound, requires assist with ADL including eating -Will continue to have PT /OT working with pt -pt is [employer] dependent - has a history of dysphasia but opted not to follow dysphasia diet Possible UTI vs colonization -nitrate neg but with small leukocytes urine culture : pending, gram-positive bacteria h/o DVT on coumadin -We'll follow INR dose coumadin for target INR between 2 and 3 Essential tremor -cont propranolol History of depression For now we'll hold the scheduled lorazepam due to the patient's lethargy Continue remeron DNR CODE STATUS
[2017-03-23] MEDS ORDERED: Warfarin 5 MG Tab PO ONE (14:00)
[2017-03-23] MEDS: Pantoprazole 40 MG Tab.CR PO SCH (20:25)
[2017-03-24] MEDS: Sodium Chloride 0.9% 10 ML Syringe FLUSH PRN ×4 (05:29→23:28)
[2017-03-24] MEDS: Clindamycin Phosphate 600 MG in Sodium Chloride 0.9% 100 ML IV SCH ×3 (05:30→22:57)
[2017-03-24 06:56] LABS: CHLORIDE,CL 110 mmol/L (101-111); SODIUM,NA 141 mmol/L (135-145)
[2017-03-24] MEDS: Multivitamins,Therapeutic Tab PO SCH (10:17)
[2017-03-24] MEDS: Propranolol 20 MG Tab PO SCH ×3 (10:17→20:12)
[2017-03-24] MEDS: Polyethylene Glycol 3350 Powder 17 GM Packet PO SCH (10:17)
[2017-03-24] MEDS: Acetaminophen 325 MG Tab PO SCH ×3 (10:18→20:12)
[2017-03-24] MEDS: Tamsulosin 0.4 MG Cap.ER PO SCH (10:18)
[2017-03-24] MEDS: Mirtazapine 15 MG Tab PO SCH (10:19)
[2017-03-24] MEDS: Dexamethasone/Tobramycin 0.1-0.3% Ophth Susp 2.5 ML Bottle EYEBOTH SCH ×2 (10:20→20:13)
--- NOTE | 2017-03-24 12:16 | PCM.PN ---
- General Info Date of Service: 03/24/17 Admission Dx/Problem (Free Text): Admission Diagnosis/Problem Admission Diagnosis/Problem Cellulitis Subjective Update: the patient remained hemodynamically stable overnight. She is awake and alert. Continue to have a right lower extremity redness but improved. No significant fever. no complaints of chest pain, shortness of breath. eating better - Review of Systems General: Reports: Weakness (less). Denies: Fever Pulmonary: Denies: shortness of breath Cardiovascular: Denies: Chest Pain Gastrointestinal: Denies: Abdominal pain - Patient Data Vitals - most recent: Last Vital Signs Temp 37.1 C 03/24/17 08:22 Pulse 64 03/24/17 08:22 Resp 20 03/24/17 08:22 BP 146/90 H 03/24/17 08:22 Pulse Ox 96 03/24/17 08:22 Weight - most recent: 95.719 kg I&O - last 24 hours: Intake & Output 03/23/17 03/24/17 03/24/17 22:59 06:59 14:59 Intake Total 1850 750 Output Total 100 250 Balance 1750 500 Lab Results last 24 hrs: Laboratory Results - last 24 hr 03/24/17 03/24/17 03/24/17 Range/Units 06:00 06:00 06:00 WBC 7.8 (5.0-10.0) 10^3/uL RBC 4.50 L (4.6-6.2) 10^6/uL Hgb 13.6 L (14.0-18.0) g/dL Hct 42.6 (40.0-54.0) % MCV 94.7 (80-100) fL MCH 30.2 (27.0-34.0) pg MCHC 31.9 L (33.0-35.0) g/dL Plt Count 175 (150-450) 10^3/uL Neut % (Auto) 73.8 (42.2-75.2) % Lymph % (Auto) 13.1 L (20.5-50.1) % [place] % (Auto) 9.3 H (2-8) % Eos % (Auto) 3.4 H (1.0-3.0) % Baso % (Auto) 0.4 (0.0-1.0) % PT 23.6 H (9.0-12.0) SEC INR 2.3 H (0.9-1.2) Sodium 141 (135-145) mmol/L Potassium 3.7 (3.6-5.0) mmol/L Chloride 110 (101-111) mmol/L Carbon Dioxide 26.0 (21.0-31.0) mmol/L Anion Gap 8.7 BUN 9 (7-18) mg/dL Creatinine 0.6 (0.6-1.3) mg/dL Est Cr Clr Drug Dosing 121.69 mL/min Estimated GFR (MDRD) > 60 Glucose 91 (74-105) mg/dL Calcium 8.3 L (8.4-10.2) mg/dl Med Orders - Current: Current Medications Acetaminophen (Tylenol) 650 mg PO TID [facility] Last Admin: 03/24/17 10:18 Dose: 650 mg Acetaminophen (Tylenol) 650 mg PO Q4H PRN PRN Reason: Pain (Mild 1-3)/fever Last Admin: 03/24/17 02:20 Dose: 650 mg Artificial Tears (Liquitears 1.4% Ophth Soln) 0 ml EYEBOTH ASDIRECTED [facility] Clindamycin Phosphate 600 mg/ (Sodium Chloride) 104 mls @ 200 mls/hr IV Q8HR [facility] Last Admin: 03/24/17 05:30 Dose: 200 mls/hr Ibuprofen (Motrin) 400 mg PO Q6H PRN PRN Reason: moderate to severe pain Last Admin: 03/23/17 13:00 Dose: 400 mg Mirtazapine (Remeron) 15 mg PO DAILY [facility] Last Admin: 03/24/17 10:19 Dose: 15 mg Multivitamins (Thera) 1 each PO DAILY [facility] Last Admin: 03/24/17 10:17 Dose: 1 each Pantoprazole Sodium (Protonix) 40 mg PO BEDTIME [facility] Last Admin: 03/23/17 20:25 Dose: 40 mg Polyethylene Glycol (Miralax) 17 gm PO DAILY [facility] Last Admin: 03/24/17 10:17 Dose: 17 gm Propranolol HCl (Inderal) 40 mg PO TID [facility] Last Admin: 03/24/17 10:17 Dose: 40 mg Sodium Chloride (Saline Flush) 10 ml FLUSH ASDIRECTED PRN PRN Reason: Keep Vein Open Last Admin: 03/24/17 05:29 Dose: 10 ml Tamsulosin HCl (Flomax) 0.4 mg PO DAILY [facility] Last Admin: 03/24/17 10:18 Dose: 0.4 mg Tobramycin/Dexamethasone (Tobradex Ophth Susp) 0 ml EYEBOTH BID [facility] Last Admin: 03/24/17 10:20 Dose: 1 drop Warfarin Sodium (Pharmacy To Dose - Warfarin) 1 dose .XX ASDIRECTED [facility] Warfarin Sodium (Coumadin) 5 mg PO ONETIME ONE Stop: 03/24/17 14:01 Discontinued Medications Ascorbic Acid (Vitamin C) mg PO DAILY [facility] Sodium Chloride (Normal Saline) 1,000 mls @ 999 mls/hr IV .BOLUS ONE Stop: 03/21/17 14:17 Last Admin: 03/21/17 13:29 Dose: Not Given Sodium Chloride (Normal Saline) 1,000 mls @ 999 mls/hr IV .BOLUS ONE Stop: 03/21/17 12:00 Last Admin: 03/21/17 11:00 Dose: 999 mls/hr Clindamycin Phosphate 600 mg/ (Sodium Chloride) 104 mls @ 200 mls/hr IV Q8HR [facility] Last Admin: 03/22/17 06:09 Dose: 200 mls/hr Clindamycin Phosphate 600 mg/ (Sodium Chloride) 104 mls @ 200 mls/hr IV Q8HR [facility] Clindamycin Phosphate 600 mg/ (Sodium Chloride) 104 mls @ 200 mls/hr IV Q8HR [facility] Last Admin: 03/21/17 14:51 Dose: Not Given Sodium Chloride (Normal Saline) 1,000 mls @ 50 mls/hr IV ASDIRECTED [facility] Last Infusion: 03/23/17 16:08 Dose: Infused Non-Formulary Medication (Propranolol [Inderal La]) 40 mg PO TID [facility] Warfarin Sodium (Coumadin) 5 mg PO ONETIME ONE Stop: 03/22/17 14:01 Last Admin: 03/22/17 14:39 Dose: 5 mg Warfarin Sodium (Coumadin) 5 mg PO ONETIME ONE Stop: 03/23/17 14:01 Last Admin: 03/23/17 14:09 Dose: 5 mg - Exam General: alert, oriented Neck: other (codirector) Lungs: Clear to auscultation, Normal respiratory effort Cardiovascular: Regular Rate, Regular Rhythm Abdomen: bowel sounds present, soft, no tenderness, no distension Extremities: edema (right lower extremity), other (erythema of the right lower extremity) Skin: warm Psy/Mental Status: alert, normal affect, normal mood - Problem List & Annotations (1) Cellulitis of right leg SNOMED Code(s): 205042466 Code(s): L03.115 - CELLULITIS OF RIGHT LOWER LIMB Status: Acute Current Visit: Yes - Problem List Review Problem List Initiated/Reviewed/Updated: Yes - My Orders Last 24 Hours: My Active Orders 03/23/17 14:22 Convert IV to Saline Lock [OM.PC] Routine 03/24/17 14:00 Warfarin [Coumadin] 5 mg PO ONETIME ONE - Plan Plan:: The patent is a 81 y/o from senior care with PMH h/o severe OA of the neck, essential tremors, chronic constipation, HTN, h/o DVT on coumadin , functional paraplegia with contractures, depression and chronic leg edema. On 20 March the patient was noted to develop lethargy and fever. On 21 March the patient was noted to have right lower extremity redness and was transferred to the emergency room from the senior care. She is less responsive than his baseline and not talking much. Limited information is obtainable from the patient no cough, no diarrhea, no new c/o pain - but not himself. The patient was evaluated in the emergency room, noted to have leukocytosis and right lower extremity redness. This right lower extremity redness is similar to admission with similar presentation in October 2016. Acute encephalopathy secondary to Cellulitis of the right leg and possible urinary tract infection seems resolved Will treat cellulitis Follow vital signs Cellulitis of the right lower extremity -erythema of right leg from ankle to posterior thigh -This is similar to prior admission blood cultures: negative for now Urine culture: Streptococcus viridans - Treat empirically with clinda 600 mg Q6 IV -started 03/21/17 -improving erythema and leukocytosis is also better Functional parapalegia -wheelchair bound, requires assist with ADL including eating -Will continue to have PT /OT working with pt -pt is [employer] dependent - has a history of dysphasia but opted not to follow dysphasia diet Possible UTI vs colonization -nitrate neg but with small leukocytes urine culture : Streptococcus viridans h/o DVT on coumadin -We'll follow INR dose coumadin for target INR between 2 and 3 Essential tremor -cont propranolol History of depression For now we'll hold the scheduled lorazepam due to the patient's lethargy on presentation Continue remeron DNR CODE STATUS
[2017-03-24] MEDS ORDERED: Warfarin 5 MG Tab PO ONE (14:00)
--- NOTE | 2017-03-24 14:22 | EKG ---
03/21/2017 - [facility] - TIME: 1113 hours. EKG per my reading shows atrial fibrillation with rapid ventricular rate at the rate of 130. [facility] /[id number]
[2017-03-24] MEDS ORDERED: Bisacodyl 10 MG Supp RECTAL PRN (15:20)
[2017-03-24] MEDS: Magnesium Hydroxide 400 MG/5 ML Susp 30 ML Cup PO PRN (16:16)
[2017-03-24] MEDS: Pantoprazole 40 MG Tab.CR PO SCH (20:12)
[2017-03-25] MEDS: Sodium Chloride 0.9% 10 ML Syringe FLUSH PRN ×4 (05:47→22:34)
[2017-03-25] MEDS: Clindamycin Phosphate 600 MG in Sodium Chloride 0.9% 100 ML IV SCH ×3 (05:47→21:59)
[2017-03-25] MEDS: Polyethylene Glycol 3350 Powder 17 GM Packet PO SCH (09:26)
[2017-03-25] MEDS: Propranolol 20 MG Tab PO SCH ×3 (09:29→21:58)
[2017-03-25] MEDS: Mirtazapine 15 MG Tab PO SCH (09:29)
[2017-03-25] MEDS: Acetaminophen 325 MG Tab PO SCH ×3 (09:30→21:58)
[2017-03-25] MEDS: Tamsulosin 0.4 MG Cap.ER PO SCH (09:30)
[2017-03-25] MEDS: Multivitamins,Therapeutic Tab PO SCH (09:31)
[2017-03-25] MEDS: Dexamethasone/Tobramycin 0.1-0.3% Ophth Susp 2.5 ML Bottle EYEBOTH SCH ×2 (09:31→21:58)
[2017-03-25] MEDS ORDERED: Carboxymethylcellulose Sodium 1% Ophth Gel 0.4 ML UD EYEBOTH PRN (11:10)
--- NOTE | 2017-03-25 11:14 | PCM.PN ---
- General Info Date of Service: 03/25/17 Admission Dx/Problem (Free Text): Admission Diagnosis/Problem Admission Diagnosis/Problem Cellulitis Subjective Update: the patient remained hemodynamically stable She is awake and alert. Continue to have a right lower extremity redness but improved. No significant fever. no complaints of chest pain, shortness of breath. eating better has crusty bilateral eyelids - Review of Systems General: Denies: Fever Pulmonary: Denies: shortness of breath Cardiovascular: Denies: Chest Pain Neurological: Denies: Confusion - Patient Data Vitals - most recent: Last Vital Signs Temp 37.0 C 03/25/17 07:00 Pulse 60 03/25/17 07:00 Resp 20 03/25/17 07:00 BP 138/59 L 03/25/17 07:00 Pulse Ox 97 03/25/17 07:00 Weight - most recent: 95.719 kg I&O - last 24 hours: Intake & Output 03/24/17 03/25/17 03/25/17 22:59 06:59 14:59 Intake Total 200 700 Output Total 250 200 Balance -50 500 Lab Results last 24 hrs: Laboratory Results - last 24 hr 03/25/17 Range/Units 05:55 PT 28.6 H (9.0-12.0) SEC INR 2.8 H (0.9-1.2) Med Orders - Current: Current Medications Acetaminophen (Tylenol) 650 mg PO TID [facility] Last Admin: 03/25/17 09:30 Dose: 650 mg Acetaminophen (Tylenol) 650 mg PO Q4H PRN PRN Reason: Pain (Mild 1-3)/fever Last Admin: 03/24/17 02:20 Dose: 650 mg Artificial Tears (Liquitears 1.4% Ophth Soln) 0 ml EYEBOTH ASDIRECTED [facility] Artificial Tears (Refresh Celluvisc) 1 each EYEBOTH ASDIRECTED PRN PRN Reason: crusty eye lids Bisacodyl (Dulcolax) 10 mg RECTAL DAILY PRN PRN Reason: Constipation Clindamycin Phosphate 600 mg/ (Sodium Chloride) 104 mls @ 200 mls/hr IV Q8HR [facility] Last Admin: 03/25/17 05:47 Dose: 200 mls/hr Ibuprofen (Motrin) 400 mg PO Q6H PRN PRN Reason: moderate to severe pain Last Admin: 03/23/17 13:00 Dose: 400 mg Magnesium Hydroxide (Milk Of Magnesia) 30 ml PO Q8H PRN PRN Reason: Constipation Last Admin: 03/24/17 16:16 Dose: 30 ml Mirtazapine (Remeron) 15 mg PO DAILY [facility] Last Admin: 03/25/17 09:29 Dose: 15 mg Multivitamins (Thera) 1 each PO DAILY [facility] Last Admin: 03/25/17 09:31 Dose: 1 each Pantoprazole Sodium (Protonix) 40 mg PO BEDTIME [facility] Last Admin: 03/24/17 20:12 Dose: 40 mg Polyethylene Glycol (Miralax) 17 gm PO DAILY [facility] Last Admin: 03/25/17 09:26 Dose: 17 gm Propranolol HCl (Inderal) 40 mg PO TID [facility] Last Admin: 03/25/17 09:29 Dose: 40 mg Sodium Chloride (Saline Flush) 10 ml FLUSH ASDIRECTED PRN PRN Reason: Keep Vein Open Last Admin: 03/25/17 05:47 Dose: 10 ml Tamsulosin HCl (Flomax) 0.4 mg PO DAILY [facility] Last Admin: 03/25/17 09:30 Dose: 0.4 mg Tobramycin/Dexamethasone (Tobradex Ophth Susp) 0 ml EYEBOTH BID [facility] Last Admin: 03/25/17 09:31 Dose: 1 drop Warfarin Sodium (Pharmacy To Dose - Warfarin) 1 dose .XX ASDIRECTED [facility] Warfarin Sodium (Coumadin) 2.5 mg PO ONETIME ONE Stop: 03/25/17 14:01 Discontinued Medications Ascorbic Acid (Vitamin C) mg PO DAILY [facility] Sodium Chloride (Normal Saline) 1,000 mls @ 999 mls/hr IV .BOLUS ONE Stop: 03/21/17 14:17 Last Admin: 03/21/17 13:29 Dose: Not Given Sodium Chloride (Normal Saline) 1,000 mls @ 999 mls/hr IV .BOLUS ONE Stop: 03/21/17 12:00 Last Admin: 03/21/17 11:00 Dose: 999 mls/hr Clindamycin Phosphate 600 mg/ (Sodium Chloride) 104 mls @ 200 mls/hr IV Q8HR [facility] Last Admin: 03/22/17 06:09 Dose: 200 mls/hr Clindamycin Phosphate 600 mg/ (Sodium Chloride) 104 mls @ 200 mls/hr IV Q8HR [facility] Clindamycin Phosphate 600 mg/ (Sodium Chloride) 104 mls @ 200 mls/hr IV Q8HR [facility] Last Admin: 03/21/17 14:51 Dose: Not Given Sodium Chloride (Normal Saline) 1,000 mls @ 50 mls/hr IV ASDIRECTED [facility] Last Infusion: 03/23/17 16:08 Dose: Infused Non-Formulary Medication (Propranolol [Inderal La]) 40 mg PO TID [facility] Warfarin Sodium (Coumadin) 5 mg PO ONETIME ONE Stop: 03/22/17 14:01 Last Admin: 03/22/17 14:39 Dose: 5 mg Warfarin Sodium (Coumadin) 5 mg PO ONETIME ONE Stop: 03/23/17 14:01 Last Admin: 03/23/17 14:09 Dose: 5 mg Warfarin Sodium (Coumadin) 5 mg PO ONETIME ONE Stop: 03/24/17 14:01 Last Admin: 03/24/17 14:37 Dose: 5 mg - Exam General: alert, oriented HEENT: Other (bilateral eyelids with a crusty secretions) Lungs: Clear to auscultation, Normal respiratory effort Cardiovascular: Regular Rate, Regular Rhythm Extremities: edema (trace bilateral) Skin: other (right lower extremity erythema has improved) - Problem List & Annotations (1) Cellulitis of right leg SNOMED Code(s): 832185659 Code(s): L03.115 - CELLULITIS OF RIGHT LOWER LIMB Status: Acute Current Visit: Yes - Problem List Review Problem List Initiated/Reviewed/Updated: Yes - My Orders Last 24 Hours: My Active Orders 03/24/17 15:20 Bisacodyl [Dulcolax] 10 mg RECTAL DAILY PRN Magnesium Hydroxide [Milk of Magnesia] 30 ml PO Q8H PRN 03/25/17 11:10 Carboxymethylcellulose Sodium [Refresh Celluvisc] 1 each EYEBOTH ASDIRECTED PRN 03/25/17 14:00 Warfarin [Coumadin] 2.5 mg PO ONETIME ONE 03/26/17 05:15 BASIC METABOLIC PANEL,BMP [CHEM] AM CBC WITH AUTO DIFF [HEME] AM - Plan Plan:: The patent is a 81 y/o [facility] with PMH h/o severe OA of the neck, essential tremors, chronic constipation, HTN, h/o DVT on coumadin , functional paraplegia with contractures, depression and chronic leg edema. On 20 March the patient was noted to develop lethargy and fever. On 21 March the patient was noted to have right lower extremity redness and was transferred [facility] the emergency room [facility]. She is less responsive than his baseline and not talking much. Limited information is obtainable from the patient no cough, no diarrhea, no new c/o pain - but not himself. The patient was evaluated in the emergency room, noted to have leukocytosis and right lower extremity redness. This right lower extremity redness is similar to admission with similar presentation in October 2016. Acute encephalopathy secondary to Cellulitis of the right leg and possible urinary tract infection seems resolved Cellulitis of the right lower extremity -erythema of right leg from ankle to posterior thigh blood cultures: negative for now Urine culture: Streptococcus viridans - Treat empirically with clinda 600 mg Q6 IV -started 03/21/17 -improving erythema and leukocytosis is also better Functional parapalegia -wheelchair bound, requires assist with ADL including eating, [employer] dependent -Will continue to have PT /OT working with pt - has a history of dysphasia but opted not to follow dysphasia diet Possible UTI vs colonization -nitrate neg but with small leukocytes urine culture : Streptococcus viridans h/o DVT on coumadin -We'll follow INR dose coumadin for target INR between 2 and 3 eye secretions cont Abx drops add artificial tears Essential tremor -cont propranolol History of depression For now we'll hold the scheduled lorazepam due to the patient's lethargy on presentation Continue remeron DNR CODE STATUS
[2017-03-25] MEDS ORDERED: Warfarin 2.5 MG Tab PO ONE (14:00)
[2017-03-25] MEDS ORDERED: Ondansetron 4 MG Tab.DIS PO PRN (14:11)
[2017-03-25] MEDS: Magnesium Hydroxide 400 MG/5 ML Susp 30 ML Cup PO PRN (17:16)
[2017-03-25] MEDS: Pantoprazole 40 MG Tab.CR PO SCH (21:57)
[2017-03-26] MEDS: Sodium Chloride 0.9% 10 ML Syringe FLUSH PRN ×2 (05:22→05:57)
[2017-03-26] MEDS: Clindamycin Phosphate 600 MG in Sodium Chloride 0.9% 100 ML IV SCH ×2 (05:24→11:39)
[2017-03-26 07:01] LABS: CHLORIDE,CL 107 mmol/L (101-111); SODIUM,NA 141 mmol/L (135-145)
[2017-03-26] MEDS: Propranolol 20 MG Tab PO SCH (08:43)
[2017-03-26] MEDS: Acetaminophen 325 MG Tab PO SCH (08:43)
[2017-03-26] MEDS: Mirtazapine 15 MG Tab PO SCH (08:43)
[2017-03-26] MEDS: Tamsulosin 0.4 MG Cap.ER PO SCH (08:43)
[2017-03-26] MEDS: Polyethylene Glycol 3350 Powder 17 GM Packet PO SCH (08:43)
[2017-03-26] MEDS: Multivitamins,Therapeutic Tab PO SCH (08:43)
[2017-03-26] MEDS: Dexamethasone/Tobramycin 0.1-0.3% Ophth Susp 2.5 ML Bottle EYEBOTH SCH (08:48)
--- NOTE | 2017-03-26 11:03 | PCM.DCSUM1 ---
Discharge Summary - Hospital Course Free Text/Narrative:: The patent is a 81 y/[facility] with PMH h/o severe OA of the neck, essential tremors, chronic constipation, HTN, h/o DVT on coumadin , functional paraplegia with contractures, depression and chronic leg edema. On 20 March the patient was noted to develop lethargy and fever. On 21 March the patient was noted to have right lower extremity redness and was transferred to the emergency [facility]. She was less responsive than his baseline and not talking much. no cough, no diarrhea, no new c/o pain - but not himself. The patient was evaluated in the emergency room, noted to have leukocytosis and right lower extremity redness. This right lower extremity redness is similar to admission with similar presentation in October 2016. Acute encephalopathy secondary to Cellulitis of the right leg and possible urinary tract infection I have also discontinued the Ativan seems resolved Cellulitis of the right lower extremity -erythema of right leg from ankle to posterior thigh blood cultures: negative Urine culture: Streptococcus viridans - Treated empirically with clinda 600 mg Q6 IV -started 03/21/17 -improving erythema and leukocytosis resolved will finish treatment with PO Clinda Functional parapalegia -wheelchair bound, requires assist with ADL including eating, [employer] dependent - has a history of dysphasia but opted not to follow dysphasia diet - returned to baseline Possible UTI vs colonization -nitrate neg but with small leukocytes urine culture : Streptococcus viridans h/o DVT on coumadin dose coumadin for target INR between 2 and 3 eye secretions cont Abx drops artificial tears prn Essential tremor -cont propranolol History of depression For now we'll hold the scheduled lorazepam due to the patient's lethargy on presentation Continue remeron - Discharge Data Discharge Date: 03/26/17 Discharge Disposition: DC/Tfer to [facility] Condition: Good - Discharge Diagnosis/Problem(s) (1) Cellulitis of right leg SNOMED Code(s): 230797300 ICD Code: L03.115 - CELLULITIS OF RIGHT LOWER LIMB Status: Acute Current Visit: Yes - Patient Instructions Diet: Usual Diet as Tolerated Activity: As Tolerated - Discharge Plan Prescriptions/Med Rec: Clindamycin Hcl [IJD: Clindamycin HCl] 300 mg PO .EVERY 6 HOURS #20 cap Home Medications: Home Meds Ascorbic Acid [Vitamin C] 1 tab PO DAILY 09/23/14 [History] Calcium Carbonate [Tums] 1 tab PO ASDIRECTED PRN 09/23/14 [History] Cranberry 800 mg PO BID 09/23/14 [History] Dexamethasone/Tobramycin [Tobradex Ophth Susp] 1 drop EYEBOTH ASDIRECTED [History] Docusate Sodium [Colace] 100 mg PO DAILY PRN 09/23/14 [History] Glycopyrrolate 1 mg PO BID 09/23/14 [History] Hypromellose [Systane Gel] 1 dose EYEBOTH ASDIRECTED 09/23/14 [History] Mirtazapine [Remeron] 15 mg PO DAILY 09/23/14 [History] Multivitamin [Multi-Vitamin Daily] 1 tab PO DAILY 09/23/14 [History] Polyethylene Glycol 3350 [MiraLAX] 17 gm PO DAILY 09/23/14 [History] Propranolol [Inderal LA] 40 mg PO TID 09/23/14 [History] Tamsulosin HCl 0.4 mg PO DAILY 09/23/14 [History] Warfarin Sodium [Jantoven] 2.5 mg PO ASDIRECTED 09/23/14 [History] Warfarin [Coumadin] 5 mg PO ASDIRECTED 09/23/14 [History] guaiFENesin [Robitussin] 10 ml PO ASDIRECTED PRN 09/23/14 [History] Acetaminophen [Tylenol] 650 mg PO TID 11/13/16 [History] Lidocaine HCl [Aspercreme] 76.5 gm TP BID 11/13/16 [History] Psyllium Husk [Fiber] 0.52 gm PO BID 11/13/16 [History] Trolamine Salicylate/Aloe Vera [Aspercreme 10%] 1 mg TOP ASDIRECTED 11/13/16 [ History] Vit C/Ascorbate Ca/Ascorb Sod [Vitamin C] 500 mg PO ASDIRECTED 11/13/16 [History ] Clindamycin Hcl [IJD: Clindamycin HCl] 300 mg PO .EVERY 6 HOURS #20 cap [Rx] Patient Handouts: Cellulitis, Adult, [id number] Referrals: PCP,Unobtain [Ordering Only Provider] - (in 2-3 days) - Discharge Summary/Plan Comment DC Time >30 min.: No - General Info Admission Dx/Problem (Free Text: Admission Diagnosis/Problem Admission Diagnosis/Problem Cellulitis Subjective Update: the patient remained hemodynamically stable She is awake and alert. right lower extremity redness basically resolved. No significant fever. no complaints of chest pain, shortness of breath. eating well - Review of Systems General: Denies: Fever Pulmonary: Denies: shortness of breath Cardiovascular: Denies: Chest Pain Gastrointestinal: Denies: Abdominal pain - Patient Data Vitals - Most Recent: Last Vital Signs Temp 37.0 C 03/26/17 07:00 Pulse 65 03/26/17 07:00 Resp 20 03/26/17 07:00 BP 153/67 H 03/26/17 07:00 Pulse Ox 93 L 03/26/17 07:00 Weight - Most Recent: 95.719 kg I&O - Last 24 hours: Intake & Output 03/25/17 03/26/17 03/26/17 22:59 06:59 14:59 Intake Total 404 300 200 Output Total 675 150 Balance -271 150 200 Lab Results - Last 24 hrs: Laboratory Results - last 24 hr 03/26/17 03/26/17 03/26/17 Range/Units 05:55 05:55 05:55 WBC 9.3 (5.0-10.0) 10^3/uL RBC 4.45 L (4.6-6.2) 10^6/uL Hgb 13.5 L (14.0-18.0) g/dL Hct 42.4 (40.0-54.0) % MCV 95.3 (80-100) fL MCH 30.3 (27.0-34.0) pg MCHC 31.8 L (33.0-35.0) g/dL Plt Count 210 (150-450) 10^3/uL Neut % (Auto) 70.8 (42.2-75.2) % Lymph % (Auto) 14.7 L (20.5-50.1) % Richardson % (Auto) 10.0 H (2-8) % Eos % (Auto) 4.2 H (1.0-3.0) % Baso % (Auto) 0.3 (0.0-1.0) % PT 24.0 H (9.0-12.0) SEC INR 2.4 H (0.9-1.2) Sodium 141 (135-145) mmol/L Potassium 4.1 (3.6-5.0) mmol/L Chloride 107 (101-111) mmol/L Carbon Dioxide 29.0 (21.0-31.0) mmol/L Anion Gap 9.1 BUN 8 (7-18) mg/dL Creatinine 0.6 (0.6-1.3) mg/dL Est Cr Clr Drug Dosing 121.69 mL/min Estimated GFR (MDRD) > 60 Glucose 91 (74-105) mg/dL Calcium 8.4 (8.4-10.2) mg/dl Med Orders - Current: Current Medications Acetaminophen (Tylenol) 650 mg PO TID [facility] Last Admin: 03/26/17 08:43 Dose: 650 mg Acetaminophen (Tylenol) 650 mg PO Q4H PRN PRN Reason: Pain (Mild 1-3)/fever Last Admin: 03/24/17 02:20 Dose: 650 mg Artificial Tears (Refresh Celluvisc) 1 each EYEBOTH Q1H PRN PRN Reason: crusty eye lids Last Admin: 03/25/17 17:16 Dose: 1 each Bisacodyl (Dulcolax) 10 mg RECTAL DAILY PRN PRN Reason: Constipation Last Admin: 03/26/17 05:02 Dose: 10 mg Clindamycin Phosphate 600 mg/ (Sodium Chloride) 104 mls @ 200 mls/hr IV Q8HR [facility] Last Admin: 03/26/17 05:24 Dose: 200 mls/hr Ibuprofen (Motrin) 400 mg PO Q6H PRN PRN Reason: moderate to severe pain Last Admin: 03/23/17 13:00 Dose: 400 mg Magnesium Hydroxide (Milk Of Magnesia) 30 ml PO Q8H PRN PRN Reason: Constipation Last Admin: 03/25/17 17:16 Dose: 30 ml Mirtazapine (Remeron) 15 mg PO DAILY [facility] Last Admin: 03/26/17 08:43 Dose: 15 mg Multivitamins (Thera) 1 each PO DAILY [facility] Last Admin: 03/26/17 08:43 Dose: 1 each Ondansetron HCl (Zofran Odt) 4 mg PO Q6H PRN PRN Reason: Nausea Pantoprazole Sodium (Protonix) 40 mg PO BEDTIME [facility] Last Admin: 03/25/17 21:57 Dose: Not Given Polyethylene Glycol (Miralax) 17 gm PO DAILY [facility] Last Admin: 03/26/17 08:43 Dose: 17 gm Propranolol HCl (Inderal) 40 mg PO TID [facility] Last Admin: 03/26/17 08:43 Dose: 40 mg Sodium Chloride (Saline Flush) 10 ml FLUSH ASDIRECTED PRN PRN Reason: Keep Vein Open Last Admin: 03/26/17 05:57 Dose: 10 ml Tamsulosin HCl (Flomax) 0.4 mg PO DAILY [facility] Last Admin: 03/26/17 08:43 Dose: 0.4 mg Tobramycin/Dexamethasone (Tobradex Ophth Susp) 0 ml EYEBOTH BID [facility] Last Admin: 03/26/17 08:48 Dose: 1 drop Warfarin Sodium (Pharmacy To Dose - Warfarin) 1 dose .XX ASDIRECTED [facility] Discontinued Medications Artificial Tears (Liquitears 1.4% Ophth Soln) 0 ml EYEBOTH ASDIRECTED [facility] Ascorbic Acid (Vitamin C) mg PO DAILY [facility] Sodium Chloride (Normal Saline) 1,000 mls @ 999 mls/hr IV .BOLUS ONE Stop: 03/21/17 14:17 Last Admin: 03/21/17 13:29 Dose: Not Given Sodium Chloride (Normal Saline) 1,000 mls @ 999 mls/hr IV .BOLUS ONE Stop: 03/21/17 12:00 Last Admin: 03/21/17 11:00 Dose: 999 mls/hr Clindamycin Phosphate 600 mg/ (Sodium Chloride) 104 mls @ 200 mls/hr IV Q8HR [facility] Last Admin: 03/22/17 06:09 Dose: 200 mls/hr Clindamycin Phosphate 600 mg/ (Sodium Chloride) 104 mls @ 200 mls/hr IV Q8HR [facility] Clindamycin Phosphate 600 mg/ (Sodium Chloride) 104 mls @ 200 mls/hr IV Q8HR [facility] Last Admin: 03/21/17 14:51 Dose: Not Given Sodium Chloride (Normal Saline) 1,000 mls @ 50 mls/hr IV ASDIRECTED [facility] Last Infusion: 03/23/17 16:08 Dose: Infused Non-Formulary Medication (Propranolol [Inderal La]) 40 mg PO TID [facility] Warfarin Sodium (Coumadin) 5 mg PO ONETIME ONE Stop: 03/22/17 14:01 Last Admin: 03/22/17 14:39 Dose: 5 mg Warfarin Sodium (Coumadin) 5 mg PO ONETIME ONE Stop: 03/23/17 14:01 Last Admin: 03/23/17 14:09 Dose: 5 mg Warfarin Sodium (Coumadin) 5 mg PO ONETIME ONE Stop: 03/24/17 14:01 Last Admin: 03/24/17 14:37 Dose: 5 mg Warfarin Sodium (Coumadin) 2.5 mg PO ONETIME ONE Stop: 03/25/17 14:01 Last Admin: 03/25/17 14:42 Dose: 2.5 mg - Exam General: Reports: alert, oriented Neck: Reports: other (contracture) Lungs: Reports: Clear to auscultation, Normal respiratory effort Cardiovascular: Reports: Regular Rate, Regular Rhythm Extremities: Reports: edema (trace bilateral) Skin: Reports: other (right lower extremity redness mostly resolved) Psy/Mental Status: Reports: alert, normal affect, normal mood *Q Meaningful Use (DIS) - VTE *Q VTE Criteria *Q: - Stroke *Q Stroke Criteria *Q: - AMI *Q AMI Criteria *Q:
[2017-03-26 11:18] VITALS: BP 139/57
[2017-03-26] MEDS ORDERED: Warfarin 5 MG Tab PO ONE (14:00)
== END 2017-03-26 12:16 | DRG 602 ==
LOC: DL.ED 10:39 → UNDOADMIN 13:10 → DL.MS 13:10 → DL.ED 13:30 → DL.MS 14:29
PROVIDERS: ADMIT Internal Medicine; ATTEND Internal Medicine
DX: A41.9 Sepsis, unspecified organism (principal); L03.115 Cellulitis of right lower limb; G93.40 Encephalopathy, unspecified; N39.0 Urinary tract infection, site not specified; B95.4 Other streptococcus as the cause of diseases classified elsewhere; R41.82 Altered mental status, unspecified; M47.892 Other spondylosis, cervical region; G25.0 Essential tremor; K59.09 Other constipation; I10 Essential (primary) hypertension; Z86.718 Personal history of other venous thrombosis and embolism; Z79.01 Long term (current) use of anticoagulants; N40.0 Benign prostatic hyperplasia without lower urinary tract symptoms; F44.4 Conversion disorder with motor symptom or deficit; F32.9 Major depressive disorder, single episode, unspecified; R60.0 Localized edema; Z79.899 Other long term (current) drug therapy; Z88.0 Allergy status to penicillin; Z88.1 Allergy status to other antibiotic agents; Z86.73 Personal history of transient ischemic attack (TIA), and cerebral infarction without residual deficits; H57.8 Other specified disorders of eye and adnexa; Z99.3 Dependence on wheelchair; Z66 Do not resuscitate; R13.10 Dysphagia, unspecified
CPT/HCPCS: 36415; 71010; 80053; 81001; 83605; 84484; 85025; 85610; 86140; 87040 ×2; 87086; 93005; 93010; 96360; 96361; 99284; 99285; J7030; 80048; 97161-GP; 97165-GO; A9270-GY; J7050; S0077

== ENCOUNTER 2019-03-19 21:56 | Emergency (ER) | payer MEDICARE, OTHER, MEDICAID ==
--- NOTE | 2019-03-19 22:17 | EDM.PDOC ---
ED HPI GENERAL MEDICAL PROBLEM - General Chief Complaint: Trauma Stated Complaint: FALL Time Seen by Provider: 03/19/19 22:12 Source of Information: Reports: [facility] Records History Limitations: Reports: Other (dementia) - History of Present Illness INITIAL COMMENTS - FREE TEXT/NARRATIVE: fell onto left chest area hip when fell off [employer]. no known head/neck injury. pt c/o mostly rib ?hip pain. head/neck no change. pt has chronic torticollis. Left Chest Pain Score (Numeric/FACES): 8 - Related Data Allergies Allergy/AdvReac Type Severity Reaction Status Date / Time amoxicillin [Amoxicillin] Allergy Unknown Cannot Verified 03/19/19 22:45 Remember Penicillins Allergy Unknown Cannot Verified 03/19/19 22:45 Remember Home Meds: Home Meds Calcium Carbonate [Tums] 1 tab PO DAILY PRN 09/23/14 [History] Cranberry 800 mg PO BID 09/23/14 [History] Docusate Sodium [Colace] 100 mg PO DAILY PRN 09/23/14 [History] Glycopyrrolate 1 mg PO BID 09/23/14 [History] Mirtazapine [Remeron] 15 mg PO DAILY 09/23/14 [History] Multivitamin [Multi-Vitamin Daily] 1 tab PO DAILY 09/23/14 [History] Polyethylene Glycol 3350 [MiraLAX] 17 gm PO DAILY 09/23/14 [History] Propranolol [Inderal LA] 40 mg PO TID 09/23/14 [History] Tamsulosin HCl 0.4 mg PO DAILY 09/23/14 [History] Warfarin Sodium [Jantoven] 2.5 mg PO .WED 09/23/14 [History] Warfarin [Coumadin] 5 mg PO ASDIRECTED 09/23/14 [History] guaiFENesin [Robitussin] 10 ml PO ASDIRECTED PRN 09/23/14 [History] Acetaminophen [Tylenol] 650 mg PO TID 11/13/16 [History] Lidocaine HCl [Aspercreme] 76.5 gm TP BID 11/13/16 [History] Vit C/Ascorbate Ca/Ascorb Sod [Vitamin C] 500 mg PO DAILY 11/13/16 [History] Carboxymethylcellulose Sodium [Refresh Celluvisc] 1 drop EYEBOTH TID 05/19/18 [ History] Cyclobenzaprine [Flexeril] 10 mg PO BID 05/19/18 [History] Furosemide 20 mg PO .MONWEDFRI 05/19/18 [History] Past Medical History HEENT History: Reports: Other (See Below) Other HEENT History: conjunctivitis Cardiovascular History: Reports: Hypertension, Other (See Below) Other Cardiovascular History: dependent edema Gastrointestinal History: Reports: Chronic Constipation, Diverticulosis Genitourinary History: Reports: BPH Musculoskeletal History: Reports: Other (See Below) Other Musculoskeletal History: debility Neurological History: Reports: TIA, Other (See Below) Other Neuro History: essential tremor Psychiatric History: Reports: Depression Hematologic History: Reports: Anticoagulation Therapy Dermatologic History: Reports: Cellulitis Social & Family History - Family History Family Medical History: Noncontributory Respiratory: Reports: COPD - Tobacco Use Smoking Status *Q: Never Smoker - Caffeine Use Caffeine Use: Reports: Coffee - Recreational Drug Use Recreational Drug Use: No - Living Situation & Occupation Living situation: Reports: Extended Care Facility Occupation: Retired Review of Systems - Review of Systems Review Of Systems: ROS reveals no pertinent complaints other than HPI. ED EXAM, GENERAL - Physical Exam Exam: See Below Exam Limited By: No Limitations General Appearance: Alert, WD/WN, Mild Distress, Other ([place]) Ears: Hearing Grossly Normal Throat/Mouth: Normal Voice, No Airway Compromise Head: Atraumatic Neck: Non-Tender, Other (chronic torticollis) Respiratory/Chest: Other (tender left ant-lat 6-7-8-9 region ? crepitus, no ecchymosis. ) Cardiovascular: Regular Rate, Rhythm GI/Abdominal: Soft, Non-Tender Neurological: Alert, Other (dementia) Psychiatric: Flat Affect Skin Exam: Warm, Dry, Normal Color Lymphatic: No Adenopathy Course - Vital Signs Last Recorded V/S: Last Vital Signs Temp 36.6 C 03/20/19 00:06 Pulse 78 03/20/19 00:06 Resp 18 03/20/19 00:06 BP 122/71 03/20/19 00:06 Pulse Ox 96 03/20/19 00:06 - Orders/Labs/Meds Meds: Medications Discontinued Medications Generic Name Dose Route Start Last Admin Trade Name Freq PRN Reason Stop Dose Admin Hydrocodone Bitart/Acetaminophen 1 tab 03/19/19 23:50 03/20/19 00:02 [place] 325-10 Mg PO 03/19/19 23:51 1 tab ONETIME ONE Administration - Re-Assessments/Exams Free Text/Narrative Re-Assessment/Exam: 03/19/19 23:[address] Ford who rec' pain Rx + spirometer + d/[facility] Departure - Departure Time of Disposition: 00:30 Disposition: DC/Tfer to SNF 03 Condition: Fair Clinical Impression: Closed rib fracture Qualifiers: Encounter type: initial encounter Rib fracture type: multiple ribs Laterality: left Qualified Code(s): S22.42XA - Multiple fractures of ribs, left side, initial encounter for closed fracture - Discharge Information Instructions: Rib Fracture, [id number] Referrals: PCP,None [Primary Care Provider] - Forms: ED Department Discharge Additional Instructions: 1) use spirometer 2) follow Dr Ford orders
[2019-03-19] MEDS ORDERED: Acetaminophen/HYDROcodone 325-10 MG Tab PO ONE (23:50)
[2019-03-20 00:07] VITALS: BP 122/71; PULSE 78
== END 2019-03-20 00:30 ==
LOC: DL.ED 21:56
DX: S22.42XA Multiple fractures of ribs, left side, initial encounter for closed fracture (principal); I10 Essential (primary) hypertension; F03.90 Unspecified dementia, unspecified severity, without behavioral disturbance, psychotic disturbance, mood disturbance, and anxiety; Z86.73 Personal history of transient ischemic attack (TIA), and cerebral infarction without residual deficits; Z79.01 Long term (current) use of anticoagulants; Z79.899 Other long term (current) drug therapy; Z88.0 Allergy status to penicillin; Z88.1 Allergy status to other antibiotic agents; W17.89XA Other fall from one level to another, initial encounter
CPT/HCPCS: 71250; 72192; 99284; 99285; A9270